=== PATIENT | female | born 1945 | race Caucasian/White ===

== ENCOUNTER 2017-02-05 16:31 | Observation (INO) | payer MEDICARE ==
[2017-02-05] VITALS (8 sets, daily range): BP systolic 116–150; BP diastolic 57–75; PULSE 60–90; RESP 16–24; TEMP 98.5; O2SAT 70–100
[~2017-02-05] VITALS: Ht 157.5 cm; Wt 54.0 kg
[~2017-02-05 16:31] MED LIST: BISO5TAB5 PO; FENT50DI T-DERMAL; LINA290C PO; MACR100C PO; NEXI40CA PO; SIMV20 PO
--- NOTE | 2017-02-05 18:56 | PD ---
HPI Chief Complaint: Chest Pain Time Seen by Provider: 18:55 Travel History International Travel<30 days: No Contact w/Intl Traveler<30days: No Traveled to known affect area: No History of Present Illness HPI 71-year-old female with history of multiple myalgias, arthralgias, asthma, pulmonary scarring, presents emergency department for evaluation of he chest pain. She was in her primary care provider's office by her made him aware of her symptoms. They contacted 911 and she was brought to the emergency department. Patient states that she has so many different pains she is uncertain if this is normal for her or not. Over the last 3 days she has been having episodes where she feels as though her asthma is flaring. She has to take a deeper breath. Over the last few days she has had a pain between her shoulders and on her left anterior chest. She has no nausea or vomiting. The lightheaded sensation. No diaphoresis. Patient has no recent illnesses, fever , chills. She has no other symptoms to report. Patient's last stress test was 3 years ago. PFSH Past Medical History Arthritis: Yes (OA) Cardiovascular Problems: Yes (OR TIMES 2) Cerebrovascular Accident: Yes (CVA) Diminished Hearing: No GERD: Yes Myocardial Infarction: Yes (2) Past Surgical History Appendectomy: Yes Cholecystectomy: Yes Eye Surgery: Yes (BILAT. EYES) Social History Alcohol Use: No Tobacco Use: No Substance Use: No Allergies-Medications (Allergen,Severity, Reaction): Coded Allergies: penicillin G (Unverified Allergy, Severe, 10/10/16) Reported Meds & Prescriptions Reported Meds & Active Scripts Active Reported Fentanyl 50 Mcg/Hr patch (Fentanyl) 50 Mcg/Hr Dis 1 Patch T-DERMAL Q3D Simvastatin 20 mg (Simvastatin) 20 Mg Tab 1 Tab PO HS Bisoprolol Fumarate 5 Mg Tab 5 Mg PO DAILY Nexium (Esomeprazole Magnesium) Esomeprazole Magnesium 40 mg Cap 40 Mg PO BID Macrobid (Nitrofurantoin Macrocrystals) 100 Mg Cap 100 Mg PO BID Linzess (Linaclotide) 290 Mcg Cap 290 Mcg PO Review of Systems Except as stated in HPI: all other systems reviewed are Neg Physical Exam Narrative GENERAL: Well-nourished female patient, lying in bed in no acute distress. SKIN: Focused skin assessment warm/dry. HEAD: Atraumatic. Normocephalic. EYES: Pupils equal and round. No scleral icterus. No injection or drainage. ENT: No nasal bleeding or discharge. Mucous membranes pink and moist. NECK: Trachea midline. No JVD. CARDIOVASCULAR: Regular rate and rhythm. RESPIRATORY: No accessory muscle use. Clear to auscultation. Breath sounds equal bilaterally. No tenderness elicited palpation over the anterior cage. No crepitus. GASTROINTESTINAL: Abdomen soft, non-tender, nondistended. Hepatic and splenic margins not palpable. MUSCULOSKELETAL: No obvious deformities. No clubbing. No cyanosis. No edema. NEUROLOGICAL: Awake and alert. No obvious cranial nerve deficits. Motor grossly within normal limits. Normal speech. PSYCHIATRIC: Appropriate mood and affect; insight and judgment normal. Data Data Last Documented VS Vital Signs Date Time Temp Pulse Resp B/P (MAP) Pulse Ox O2 Delivery O2 Flow Rate FiO2 02/05/17 20:02 16 02/05/17 19:46 66 116/62 (80) 98 Room Air 02/05/17 18:50 98.5 Orders Orders Electrocardiogram (02/05/17 18:55) Basic Metabolic Panel (Bmp) (02/05/17 18:55) B-Type Natriuretic Peptide (02/05/17 18:55) Ckmb (Isoenzyme) Profile (02/05/17 18:55) Complete Blood Count With Diff (02/05/17 18:55) Magnesium (Mg) (02/05/17 18:55) Prothrombin Time / Inr (Pt) (02/05/17 18:55) Act Partial Throm Time (Ptt) (02/05/17 18:55) Troponin I (02/05/17 18:55) Chest, Single Ap (02/05/17 18:55) Ecg Monitoring (02/05/17 18:55) Bilateral Bp Monitoring (02/05/17 18:55) Iv Access Insert/Monitor (02/05/17 18:55) Oximetry (02/05/17 18:55) Oxygen Administration (02/05/17 18:55) Sodium Chloride 0.9% Flush (Ns Flush) (02/05/17 19:00) Nitroglycerin Sl (Nitrostat Sl) (02/05/17 19:00) Sodium Chlorid 0.9% 500 Ml Inj (Ns 500 M (02/05/17 19:00) Ketorolac Inj (Toradol Inj) (02/05/17 21:00) Activity Bed Rest With Brp (02/05/17 21:06) Vital Signs (Adult) Q4H (02/05/17 21:06) Cardiac Rhythm .As Directed (02/05/17 21:06) Notify Dr: Other .PRN (02/05/17 21:06) Notify Dr. Parameters (02/05/17 21:06) Resp Oxygen Nasal Cannula (02/05/17 ) Diet Npo (02/06/17 Breakfast) Diet Heart Healthy (02/05/17 Dinner) Ckmb (Isoenzyme) Profile (02/05/17 22:15) Ckmb (Isoenzyme) Profile (02/06/17 01:15) Troponin I (02/05/17 22:15) Troponin I (02/06/17:15) Electrocardiogram (02/05/17 22:15) Electrocardiogram (02/06/17 01:15) ^ Obtain (02/05/17 21:06) Sodium Chloride 0.9% Flush (Ns Flush) (02/05/17 21:15) Sodium Chloride 0.9% Flush (Ns Flush) (02/06/17 09:00) Acetaminophen (Tylenol) (02/05/17 21:15) Acetamin-Hydrocod 325-7.5 Mg ([place] 7.5 (02/05/17 21:15) Ondansetron Inj (Zofran Inj) (02/05/17 21:15) Motor Vehicle Emissions Inspector / Telemetry ROLANDA.Q8H (02/05/17 21:06) Casey Bilateral/Knee High ROLANDA.QSHIFT (02/05/17 21:06) Admit Order (Ed Use Only) (02/05/17 21:06) Labs Laboratory Tests Test 02/05/17 19:10 White Blood Count 6.8 TH/MM3 Red Blood Count 4.11 MIL/MM3 Hemoglobin 13.1 GM/DL Hematocrit 39.0 % Mean Corpuscular Volume 94.9 FL Mean Corpuscular Hemoglobin 31.9 PG Mean Corpuscular Hemoglobin Concent 33.7 % Red Cell Distribution Width 12.8 % Platelet Count 259 TH/MM3 Mean Platelet Volume 7.7 FL Neutrophils (%) (Auto) 67.2 % Lymphocytes (%) (Auto) 25.7 % Monocytes (%) (Auto) 6.0 % Eosinophils (%) (Auto) 0.5 % Basophils (%) (Auto) 0.6 % Neutrophils # (Auto) 4.6 TH/MM3 Lymphocytes # (Auto) 1.8 TH/MM3 Monocytes # (Auto) 0.4 TH/MM3 Eosinophils # (Auto) 0.0 TH/MM3 Basophils # (Auto) 0.0 TH/MM3 CBC Comment DIFF FINAL Differential Comment Prothrombin Time 10.2 SEC Prothromb Time International Ratio 1.0 RATIO Activated Partial Thromboplast Time 35.4 SEC Blood Urea Nitrogen 17 MG/DL Creatinine 0.97 MG/DL Random Glucose 94 MG/DL Calcium Level 9.1 MG/DL Magnesium Level 2.3 MG/DL Sodium Level 139 MEQ/L Potassium Level 4.5 MEQ/L Chloride Level 105 MEQ/L Carbon Dioxide Level 26.9 MEQ/L Anion Gap 7 MEQ/L Estimat Glomerular Filtration Rate 57 ML/MIN Total Creatine Kinase 76 U/L Troponin I LESS THAN 0.02 NG/ML B-Type Natriuretic Peptide 51 PG/ML MDM Medical Decision Making Medical Screen Exam Complete: Yes Emergency Medical Condition: Yes Medical Record Reviewed: Yes Differential Diagnosis ACS versus chest wall pain versus pleuritic pain versus spasm Narrative Course 71-year-old female presents versus department for evaluation. Patient appears without distress. Vital signs are stable. Laboratory Tests Test 02/05/17 19:10 White Blood Count 6.8 TH/MM3 Red Blood Count 4.11 MIL/MM3 Hemoglobin 13.1 GM/DL Hematocrit 39.0 % Mean Corpuscular Volume 94.9 FL Mean Corpuscular Hemoglobin 31.9 PG Mean Corpuscular Hemoglobin Concent 33.7 % Red Cell Distribution Width 12.8 % Platelet Count 259 TH/MM3 Mean Platelet Volume 7.7 FL Neutrophils (%) (Auto) 67.2 % Lymphocytes (%) (Auto) 25.7 % Monocytes (%) (Auto) 6.0 % Eosinophils (%) (Auto) 0.5 % Basophils (%) (Auto) 0.6 % Neutrophils # (Auto) 4.6 TH/MM3 Lymphocytes # (Auto) 1.8 TH/MM3 Monocytes # (Auto) 0.4 TH/MM3 Eosinophils # (Auto) 0.0 TH/MM3 Basophils # (Auto) 0.0 TH/MM3 CBC Comment DIFF FINAL Differential Comment Prothrombin Time 10.2 SEC Prothromb Time International Ratio 1.0 RATIO Activated Partial Thromboplast Time 35.4 SEC Blood Urea Nitrogen 17 MG/DL Creatinine 0.97 MG/DL Random Glucose 94 MG/DL Calcium Level 9.1 MG/DL Magnesium Level 2.3 MG/DL Sodium Level 139 MEQ/L Potassium Level 4.5 MEQ/L Chloride Level 105 MEQ/L Carbon Dioxide Level 26.9 MEQ/L Anion Gap 7 MEQ/L Estimat Glomerular Filtration Rate 57 ML/MIN Total Creatine Kinase 76 U/L Troponin I LESS THAN 0.02 NG/ML B-Type Natriuretic Peptide 51 PG/ML Last Impressions Chest X-Ray 02/05/17 6167 Signed Impressions: Service Date/Time: Sunday, February 05, 2017 19:17 - CONCLUSION: 1. No active disease. Small hiatal hernia. Tomás Killian MD I discussed the patient with my attending physician. We feel it is in her best interest to be admitted observation to the chest pain center. Plan as discussed with the patient and her . They are in agreement with this as well. Diagnosis Primary Impression: Atypical chest pain Admitting Information Admitting Physician Requests: Observation Condition: Stable JeanineRadhaYuliatasia MOREAU Feb 05, 2017 18:56
[2017-02-05] MEDS ORDERED: SODIUM CHLORIDE 0.9% FLUSH 10 ML FLUSH IVF PRN (19:00)
[2017-02-05] MEDS ORDERED: SODIUM CHLORID 0.9% 500 ML INJ 500 ML IV ONE (19:00)
[2017-02-05] MEDS: NITROGLYCERIN 0.4 MG SL 25 TABS/BTL SL SCH ×3 (19:17→19:47)
--- NOTE | 2017-02-05 19:35 | RADRPT ---
EXAM DATE/TIME: 02/05/2017 19:17 [facility] COMPARISON: No previous studies available for comparison. INDICATIONS : Chest pain MEDICAL HISTORY : Cardiovascular disease. SURGICAL HISTORY : None. ENCOUNTER: Initial ACUITY: 1 day PAIN SCORE: 3/10 LOCATION: Bilateral chest FINDINGS: A single view of the chest demonstrates the lungs to be symmetrically aerated without evidence of mas s, infiltrate or effusion. The cardiomediastinal contours are unremarkable except small hiatal herni a. Osseous structures are intact. CONCLUSION: 1. No active disease. Small hiatal hernia. Tomás Killian MD on February 05, 2017 at 19:32 Board Certified Radiologist. This report was verified electronically.
[2017-02-05 20:11] LABS: AUTOMATED NEUTROPHIL # 4.6 TH/MM3 (1.8-7.7); BASOPHIL % 0.6 % (0.0-2.0); EOSINOPHIL % 0.5 % (0.0-4.0); HEMO FLAGS DIFF FINAL; LYMPH % 25.7 % (9.0-44.0); LYMPHOCYTE # 1.8 TH/MM3 (1.0-4.8); MEAN CELL VOLUME 94.9 FL (80.0-100.0); MEAN CORPUSCULAR HEMOGLOBIN 31.9 PG (27.0-34.0); MEAN CORPUSCULAR HGB CONC 33.7 % (32.0-36.0); NEUT % 67.2 % (16.0-70.0); PLATELET COUNT 259 TH/MM3 (150-450); RED BLOOD COUNT 4.11 MIL/MM3 (4.00-5.30); RED CELL DISTRIBUTION WIDTH 12.8 % (11.6-17.2); WHITE BLOOD COUNT 6.8 TH/MM3 (4.0-11.0)
[2017-02-05 20:18] LABS: APTT (PATIENT) 35.4 SEC (24.3-30.1); PROTHROMBIN TIME - PATIENT 10.2 SEC (9.8-11.6)
[2017-02-05 20:24] LABS: ANION GAP 7 MEQ/L (5-15); BICARBONATE 26.9 MEQ/L (21.0-32.0); BLOOD UREA NITROGEN 17 MG/DL (7-18); CHLORIDE 105 MEQ/L (98-107); GLOMERULAR FILTRATION RATE 57 ML/MIN (>89); MAGNESIUM 2.3 MG/DL (1.5-2.5); POTASSIUM 4.5 MEQ/L (3.5-5.1); SODIUM (NA) 139 MEQ/L (136-145)
[2017-02-05 20:35] LABS: CREATINE KINASE 76 U/L (26-192)
[2017-02-05] MEDS ORDERED: KETOROLAC TROMETHAMINE 30 MG/ML (IVP) VIAL IV PUSH ONE (21:00)
[2017-02-05] MEDS ORDERED: ONDANSETRON HCL 4 MG/2 ML VIAL IV PUSH PRN (21:15)
[2017-02-05] MEDS ORDERED: ACETAMINOPHEN/HYDROcodone 325 MG/7.5 MG TAB PO PRN (21:15)
[2017-02-05] MEDS ORDERED: SODIUM CHLORIDE 0.9% FLUSH 10 ML FLUSH IV FLUSH PRN (21:15)
[2017-02-05] MEDS ORDERED: ACETAMINOPHEN 500 MG CPLT PO PRN (21:15)
--- NOTE | 2017-02-05 21:16 | PD ---
Physical Exam Narrative General: The patient is a well-developed well-nourished female in no acute distress. She denies having any chest pain currently. Head and Neck exam: Head is normocephalic atraumatic. Eyes: Pupils are equal round and reactive to light. Nose: Midline septum with pink mucous membranes Mouth: Dentition unremarkable. Moist mucus membranes. Posterior oropharynx is not erythematous. No tonsillar hypertrophy. Uvula midline. Airway patent. Neck: No palpable lymphadenopathy. No nuchal rigidity. No thyromegaly. Cardiovascular: Regular rate and rhythm without murmurs, gallops, or rubs. Lungs: Soft expiratory wheezes audible anteriorly, no respiratory distress. No crackles, no rhonchi. No accessory muscle use. No tripoding or paroxysmal abdominal breathing. Abdomen: Soft, without tenderness to palpation in all 4 quadrants of the abdomen. No guarding, rebound, or rigidity. Normal bowel sounds are audible. No tenderness on palpation of McBurney's point. Extremities: No clubbing, cyanosis, or edema. 2+ pulses in all 4 extremities. No Tenderness on palpation. Neurologic Exam: Grossly nonfocal. Skin Exam: No rash noted. Intact skin that is warm and dry. Data Data Last Documented VS Vital Signs Date Time Temp Pulse Resp B/P (MAP) Pulse Ox O2 Delivery O2 Flow Rate FiO2 02/05/17 20:02 16 02/05/17 19:46 66 116/62 (80) 98 Room Air 02/05/17 18:50 98.5 Orders Orders Electrocardiogram (02/05/17 18:55) Basic Metabolic Panel (Bmp) (02/05/17 18:55) B-Type Natriuretic Peptide (02/05/17 18:55) Ckmb (Isoenzyme) Profile (02/05/17 18:55) Complete Blood Count With Diff (02/05/17 18:55) Magnesium (Mg) (02/05/17 18:55) Prothrombin Time / Inr (Pt) (02/05/17 18:55) Act Partial Throm Time (Ptt) (02/05/17 18:55) Troponin I (02/05/17 18:55) Chest, Single Ap (02/05/17 18:55) Ecg Monitoring (02/05/17 18:55) Bilateral Bp Monitoring (02/05/17 18:55) Iv Access Insert/Monitor (02/05/17 18:55) Oximetry (02/05/17 18:55) Oxygen Administration (02/05/17 18:55) Sodium Chloride 0.9% Flush (Ns Flush) (02/05/17 19:00) Nitroglycerin Sl (Nitrostat Sl) (02/05/17 19:00) Sodium Chlorid 0.9% 500 Ml Inj (Ns 500 M (02/05/17 19:00) Ketorolac Inj (Toradol Inj) (02/05/17 21:00) Activity Bed Rest With Brp (02/05/17 21:06) Vital Signs (Adult) Q4H (02/05/17 21:06) Cardiac Rhythm .As Directed (02/05/17 21:06) Notify Dr: Other .PRN (02/05/17 21:06) Notify DrChandni Parameters (02/05/17 21:06) Resp Oxygen Nasal Cannula (02/05/17 ) Diet Npo (02/06/17 Breakfast) Diet Heart Healthy (02/05/17 Dinner) Ckmb (Isoenzyme) Profile (02/05/17 22:15) Ckmb (Isoenzyme) Profile (02/06/17 01:15) Troponin I (02/05/17 22:15) Troponin I (02/06/17 01:15) Electrocardiogram (02/05/17 22:15) Electrocardiogram (02/06/17 01:15) ^ Obtain (02/05/17 21:06) Sodium Chloride 0.9% Flush (Ns Flush) (02/05/17 21:15) Sodium Chloride 0.9% Flush (Ns Flush) (02/06/17 09:00) Acetaminophen (Tylenol) (02/05/17 21:15) Acetamin-Hydrocod 325-7.5 Mg ([place] 7.5 (02/05/17 21:15) Ondansetron Inj (Zofran Inj) (02/05/17 21:15) Welfare Manager / Telemetry ROLANDA.Q8H (02/05/17 21:06) Casey Bilateral/Knee High ROLANDA.QSHIFT (02/05/17 21:06) Admit Order (Ed Use Only) (02/05/17 21:06) Labs Laboratory Tests Test 02/05/17 19:10 White Blood Count 6.8 TH/MM3 Red Blood Count 4.11 MIL/MM3 Hemoglobin 13.1 GM/DL Hematocrit 39.0 % Mean Corpuscular Volume 94.9 FL Mean Corpuscular Hemoglobin 31.9 PG Mean Corpuscular Hemoglobin Concent 33.7 % Red Cell Distribution Width 12.8 % Platelet Count 259 TH/MM3 Mean Platelet Volume 7.7 FL Neutrophils (%) (Auto) 67.2 % Lymphocytes (%) (Auto) 25.7 % Monocytes (%) (Auto) 6.0 % Eosinophils (%) (Auto) 0.5 % Basophils (%) (Auto) 0.6 % Neutrophils # (Auto) 4.6 TH/MM3 Lymphocytes # (Auto) 1.8 TH/MM3 Monocytes # (Auto) 0.4 TH/MM3 Eosinophils # (Auto) 0.0 TH/MM3 Basophils # (Auto) 0.0 TH/MM3 CBC Comment DIFF FINAL Differential Comment Prothrombin Time 10.2 SEC Prothromb Time International Ratio 1.0 RATIO Activated Partial Thromboplast Time 35.4 SEC Blood Urea Nitrogen 17 MG/DL Creatinine 0.97 MG/DL Random Glucose 94 MG/DL Calcium Level 9.1 MG/DL Magnesium Level 2.3 MG/DL Sodium Level 139 MEQ/L Potassium Level 4.5 MEQ/L Chloride Level 105 MEQ/L Carbon Dioxide Level 26.9 MEQ/L Anion Gap 7 MEQ/L Estimat Glomerular Filtration Rate 57 ML/MIN Total Creatine Kinase 76 U/L Troponin I LESS THAN 0.02 NG/ML B-Type Natriuretic Peptide 51 PG/ML [facility] Medical Record Reviewed: Yes Supervised Visit with TRINIDAD: Yes Narrative Course I, Dr. Torres, have reviewed the advance practice practitioner's documentation and am in agreement, met with the patient face to face, made the diagnosis, and the medical decision making was done by me. The patient was initially evaluated by Yulia. Please see their complete history and physical. *My assessment and Findings: The patient presents with a history of recurrent chest pain and shortness of breath. The patient went to see her primary care physician earlier today and was referred to the emergency department for evaluation and treatment. During the course of the patients emergency department visit, the patients history, examination, and differential diagnosis were reviewed with the patient. The patient was placed on a monitoring engineer with oximetry and frequent blood pressure monitoring. The patient had IV access obtained and blood work sent for analysis. The patient was initially provided normal saline a 500 mL bolus 1, nitroglycerin sublingual every 5 minutes 3 when necessary chest pain. The patients laboratory studies were reviewed and remarkable for a CBC that is within normal limits, basic metabolic profile is unremarkable, CPK 76, troponin I less than 0.02, BNP 51, PT 10.2, PTT 35.4. Radiology studies were reviewed and remarkable for a chest x-ray that showed no acute abnormality, small hiatal hernia. The patients results were discussed with the patient, including the plan of care. I explained that further testing and/ or monitoring is indicated based on the patients history, examination, and/ or laboratory findings. Therefore, I recommended admission for additional evaluation. The patient expressed understanding and was agreeable with this plan. The patient was admitted to the hospital in stable condition and sent to a bed under the care of chest pain center. Diagnosis Primary Impression: Atypical chest pain Admitting Information Admitting Physician Requests: Observation Elizabeth Torres MD Feb 05, 2017 21:16
[2017-02-05] MEDS ORDERED: ALBU0.08 NEB (21:55)
[2017-02-05] MEDS ORDERED: LINA290C PO (21:55)
[2017-02-05] MEDS ORDERED: SIMV20TA PO (21:55)
[2017-02-05] MEDS ORDERED: ADVA250A INH (21:55)
[2017-02-05] MEDS ORDERED: FENT100D T-DERMAL (21:55)
[2017-02-05] MEDS ORDERED: VENTAER INH (21:55)
[2017-02-05] MEDS ORDERED: ESOM1CAP16 PO (21:55)
[2017-02-05] MEDS ORDERED: BISO5TAB5 PO (21:55)
[2017-02-05] MEDS ORDERED: HYDR-3583 (21:55)
[2017-02-05] MEDS ORDERED: NITR0.4S SL (21:55)
[2017-02-05] MEDS ORDERED: PROM25SU (21:55)
[2017-02-05 23:11] LABS: CREATINE KINASE 58 U/L (26-192)
[2017-02-06] VITALS (8 sets, daily range): BP systolic 136–144; BP diastolic 62–72; PULSE 56–85; RESP 18–20; TEMP 97.9–98.5; O2SAT 97–99
[2017-02-06 01:57] LABS: CREATINE KINASE 51 U/L (26-192)
[2017-02-06] MEDS ORDERED: SODIUM CHLORIDE 0.9% FLUSH 10 ML FLUSH IV FLUSH SCH (09:00)
[2017-02-06] MEDS ORDERED: RESP: ALBUTEROL 2.5 MG/IPRATROPIUM 0.5 MG NEB (SCH) INH ONE (09:15)
[2017-02-06] MEDS ORDERED: RESP: ALBUTEROL 2.5 MG/IPRATROPIUM 0.5 MG NEB (PRN) INH (09:15)
--- NOTE | 2017-02-06 09:16 | HHI.HP ---
HPI Primary Care Physician No Primary Care Physician Chief Complaint Chest pain History of Present Illness This is a 71-year-old female that presents to ED to be evaluated for chest pain. States that she has chest pains quite regularly. On average 2-3 discomforts a week for the last 3 years. States that she had a cardiac catheterization with her test rider in [place] 3 years ago and that was normal. States there were no blockages. She had a heart catheterization a few years prior to that also showing no blockages. She found nothing to bring on the discomforts. Uses glasses a few moments but yesterday seemed to last a couple hours which concerned her. She has asthma and thought it may be related to her asthma states the nebulizer only helped a little bit. She has not been short of breath. No nausea or diaphoresis. Currently feeling okay. Review of Systems General: Patient denies fevers, chills recent, and recent travel HEENT: Patient denies headache, sore throat, difficulty swallowing. Cardiovascular: Has the chest discomfort as mentioned above. Denies sensation of heart beating rapidly or irregularly. No syncope. Respiratory: Denies shortness of breath or inspirational chest discomfort. She has been wheezing. Denies coughing or hemoptysis. GI: Patient denies nausea, vomiting, diarrhea, abdominal pain, bloody stools. Musculoskeletal: Patient has chronic pain. States she's been several bad accidents and is chronic pain throughout her spine and chronically has myalgias and arthralgias. Denies calf pain or swelling. Neurovascular: Patient denies numbness, tingling, weakness in extremities. Denies headache. Endocrine: Denies polyuria and polydipsia. Hematologic: Denies easy bruising. Skin: Denies rash or itching. Past Family Social History Allergies: Coded Allergies: penicillin G (Unverified Allergy, Severe, 10/10/16) Past Medical History Asthma, GERD, hypertension, hyperlipidemia, chronic pain. Denies diabetes and CAD. Past Surgical History Appendectomy, cholecystectomy, and bilateral eye surgery. Reported Medications Reported Meds & Active Scripts Active Reported Nitrostat SL (Nitroglycerin) 0.4 Mg Subl 0.4 Mg SL DIRECTED PRN 1 tablet under the tongue as needed for chest pain. Repeat every 5 minutes for a total of 3 DOSES or call 911 if NO relief. Bisoprolol (Bisoprolol Fumarate) 5 Mg Tab 5 Mg PO DAILY Fentanyl Patch 72 HR (Fentanyl) 100 Mcg/Hr Patch 100 Mcg T-DERMAL Q72H Remove old patch when new one placed. Esomeprazole DR 40 Mg Capdr 40 Mg PO DAILY Linzess (Linaclotide) 290 Mcg Cap 290 Mcg PO DAILY Promethegan Supp (Promethazine HCl) 25 Mg Supp Hydrocodone-Acetamin 10-325 mg (Hydrocodone/Acetaminophen) 10 Mg-325 Mg Tablet Simvastatin 20 Mg Tab 20 Mg PO DAILY Albuterol Neb (Albuterol Sulfate) 2.5 Mg/3 Ml Neb 2.5 Mg NEB Q4HR NEB While awake Ventolin Hfa 18 GM Inh (Albuterol Sulfate) 90 Mcg/Act Aer 2 Puff INH Q4-6H PRN Advair Diskus Inh (Fluticasone-Salmeterol Inh) 250-50 Mcg/Blist Aer 1 Puff INH BID Rinse mouth after use. Active Ordered Medications Current Medications Medications (Trade) Dose Ordered Sig/Janessa Route Start Time Stop Time Status Last Admin (NS Flush) 2 ml UNSCH PRN IVF 02/05/17 19:00 (NS Flush) 2 ml UNSCH PRN IV FLUSH 02/05/17 21:15 (NS Flush) 2 ml BID IV FLUSH 02/06/17 09:00 02/06/17 08:40 (Tylenol) 500 mg Q4H PRN PO 02/05/17 21:15 02/06/17 08:40 ([place] 7.5-325 Mg) 1 tab Q4H PRN PO 02/05/17 21:15 (Zofran Inj) 4 mg Q6H PRN IV PUSH 02/05/17 21:15 Non-Formulary Medication 5 mg DAILY PO 02/06/17 09:00 UNV Non-Formulary Medication 40 mg DAILY PO 02/06/17 09:00 UNV Non-Formulary Medication 20 mg DAILY PO 02/06/17 09:00 UNV (Duoneb Neb) 1 ampule Q4HR NEB PRN INH 02/06/17 09:15 UNV (Duoneb Neb) 1 ampule STAT ONCE INH 02/06/17 09:15 02/06/17 09:16 UNV Family History There is family history of CAD. Social History Nonsmoker. Denies alcohol or illicit drugs. She is . Physical Exam Vital Signs Vital Signs Date Time Temp Pulse Resp B/P (MAP) Pulse Ox O2 Delivery O2 Flow Rate FiO2 02/06/17 08:04 98.5 56 20 138/62 (87) 97 02/06/17 06:53 85 02/06/17 04:23 63 02/06/17 03:22 97.9 72 18 144/72 (96) 99 02/06/17 00:01 59 02/05/17 22:43 98.5 60 18 130/62 (84) 99 02/05/17 22:26 02/05/17 21:14 64 16 130/60 (83) 100 Room Air 02/05/17 20:02 16 02/05/17 19:46 66 16 116/62 (80) 98 Room Air 02/05/17 19:30 68 16 120/57 (78) 97 Room Air 02/05/17 19:11 74 16 150/75 (100) 100 Room Air 02/05/17 19:09 100 16 100 Room Air 02/05/17 19:07 98 Room Air 02/05/17 18:58 98 Room Air 02/05/17 18:58 69 24 98 02/05/17 18:50 98.5 90 24 146/67 (93) 99 Physical Exam GENERAL: This is a well-nourished, well-developed patient, in no apparent distress. Patient speaks in clear complete sentences. Patient is pleasant. HEENT: Head is atraumatic and normocephalic. Neck is supple without lymphadenopathy and trachea is midline. No JVD or carotid bruits. CARDIOVASCULAR: Regular rate and rhythm without murmurs, gallops, or rubs. RESPIRATORY: Diffuse wheezing. Breath sounds equal bilaterally. No rales or rhonchi. Chest wall is nontender. No use of accessory muscles. GASTROINTESTINAL: Abdomen is nontender, nondistended. Abdomen soft. No obvious pulsatile mass or bruit. No CVA tenderness. Strong femoral pulses bilaterally. Normal bowel sounds in all quadrants. MUSCULOSKELETAL: Patient is moving upper and lower extremities freely. No calf tenderness or edema, no Homans sign. Strong pulses in upper and lower extremities. NEUROLOGICAL: Patient is alert and oriented. Cranial nerves 2-12 are grossly intact. No focal deficits and speech is clear. SKIN: No rash and turgor is normal. Laboratory Laboratory Tests Test 02/05/17 19:10 02/05/17 22:12 02/06/17 01:15 White Blood Count 6.8 Red Blood Count 4.11 Hemoglobin 13.1 Hematocrit 39.0 Mean Corpuscular Volume 94.9 Mean Corpuscular Hemoglobin 31.9 Mean Corpuscular Hemoglobin Concent 33.7 Red Cell Distribution Width 12.8 Platelet Count 259 Mean Platelet Volume 7.7 Neutrophils (%) (Auto) 67.2 Lymphocytes (%) (Auto) 25.7 Monocytes (%) (Auto) 6.0 Eosinophils (%) (Auto) 0.5 Basophils (%) (Auto) 0.6 Neutrophils # (Auto) 4.6 Lymphocytes # (Auto) 1.8 Monocytes # (Auto) 0.4 Eosinophils # (Auto) 0.0 Basophils # (Auto) 0.0 CBC Comment DIFF FINAL Differential Comment Prothrombin Time 10.2 Prothromb Time International Ratio 1.0 Activated Partial Thromboplast Time 35.4 Blood Urea Nitrogen 17 Creatinine 0.97 Random Glucose 94 Calcium Level 9.1 Magnesium Level 2.3 Sodium Level 139 Potassium Level 4.5 Chloride Level 105 Carbon Dioxide Level 26.9 Anion Gap 7 Estimat Glomerular Filtration Rate 57 Total Creatine Kinase 76 58 51 Troponin I LESS THAN 0.02 LESS THAN 0.02 LESS THAN 0.02 B-Type Natriuretic Peptide 51 Result Diagram: 02/05/17190902/05/171909 Imaging Last 48 hours Impressions Chest X-Ray 02/05/171854 Signed Impressions: Service Date/Time: Sunday, February 05, 2017 19:17 - CONCLUSION: 1. No active disease. Small hiatal hernia. Tomás Killian MD Course EKGs have sinus rhythm without significant ST segment depressions or elevations. Caprini VTE Risk Assessment Caprini VTE Risk Assessment: Mod/High Risk (score >= 2) Caprini Risk Assessment Model Point Value = 1 Point Value = 2 Point Value = 3 Point Value = 5 Age 41-60 Minor surgery BMI > 25 kg/m2 Swollen legs Varicose veins or History of unexplained or recurrent spontaneous Oral contraceptives or hormone replacement Sepsis (< 1 month) Serious lung disease, including pneumonia (< 1 month) Abnormal pulmonary function Acute myocardial infarction Congestive heart failure (< 1 month) History of inflammatory bowel disease Medical patient at bed rest Age 61-74 Arthroscopic surgery Major open surgery (> 45 min) Laparoscopic surgery (> 45 min) Malignancy Confined to bed (> 72 hours) Immobilizing plaster cast Central venous access Age >= 75 History of VTE Family history of VTE Factor V Leiden Prothrombin [id number] Lupus anticoagulant Anticardiolipin antibodies Elevated serum homocysteine Heparin-induced thrombocytopenia Other congenital or acquired thrombophilia Stroke (< 1 month) Elective arthroplasty Hip, pelvis, or leg fracture Acute spinal cord injury (< 1 month) Prophylaxis Regimen Total Risk Factor Score Risk Level Prophylaxis Regimen 0-1 Low Early ambulation 2 Moderate Order ONE of the following: *Sequential Compression Device (SCD) *Heparin 5000 units SQ BID 3-4 Higher Order ONE of the following medications: *Heparin 5000 units SQ TID *Enoxaparin/Lovenox 40 mg SQ daily (WT < 150 kg, CrCl > 30 mL/min) *Enoxaparin/Lovenox 30 mg SQ daily (WT < 150 kg, CrCl > 10-29 mL/min) *Enoxaparin/Lovenox 30 mg SQ BID (WT < 150 kg, CrCl > 30 mL/min) AND/OR *Sequential Compression Device (SCD) 5 or more Highest Order ONE of the following medications: *Heparin 5000 units SQ TID (Preferred with Epidurals) *Enoxaparin/Lovenox 40 mg SQ daily (WT < 150 kg, CrCl > 30 mL/min) *Enoxaparin/Lovenox 30 mg SQ daily (WT < 150 kg, CrCl > 10-29 mL/min) *Enoxaparin/Lovenox 30 mg SQ BID (WT < 150 kg, CrCl > 30 mL/min) AND *Sequential Compression Device (SCD) Assessment and Plan Assessment and Plan * Chest pain: Patient has had serial cardiac enzymes and EKGs for ruling out purposes. She has been seen by Dr. Brown cardiology in the chest pain center. Patient reports having 2 normal heart catheterizations, most recently being about 3 years ago and [facility]. We will get these records. If this is confirmed, patient be discharged home with instructions to follow-up with PCP and cardiology. * Asthma: Patient is actively wheezing. We'll give DuoNeb's. Patient was her medication at discharge. * Hypertension: Continue current medication. * Hyperlipidemia: Continue current medication. * GERD: Continue current medication. * Chronic pain: Continue current medication. Patient is stable at this time. She is agreeable to this plan. Nato Mclaughlin Feb 06, 2017 09:16
[2017-02-06] MEDS ORDERED: PANTOPRAZOLE SOD 40 MG DELAYED RELEASE TAB PO SCH (10:00)
[2017-02-06] MEDS ORDERED: PRAVASTATIN SOD 40 MG TAB PO SCH (10:00)
[2017-02-06] MEDS ORDERED: BISOPROLOL 5 MG PO SCH (10:00)
--- NOTE | 2017-02-06 15:15 | HHI.DCPOC ---
Discharge Care Plan Diagnosis: (1) Chest pain (2) Hypertension (3) Hyperlipidemia (4) Asthma Goals to Promote Your Health * To prevent worsening of your condition and complications * To maintain your health at the optimal level Directions to Meet Your Goals Take your medications as prescribed Follow your dietary instruction Follow activity as directed Keep your appointments as scheduled Take your immunizations and boosters as scheduled If your symptoms worsen call your PCP, if no PCP go to Urgent Care Center or Emergency Room Smoking is Dangerous to Your Health. Avoid second hand smoke Call the 24-hour hour crisis hotline for domestic abuse at Nato Mclaughlin Feb 06, 2017 15:15
--- NOTE | 2017-02-06 17:25 | EKG ---
Date Performed: 02/05/2017 Time Performed: 19:12:32 PTAGE: 71 years EKG: Sinus rhythm NORMAL ECG NO PREVIOUS TRACING DOCTOR: Angelica Brown Interpretating Date/Time 02/06/2017 17:24:42
--- NOTE | 2017-02-06 17:26 | EKG ---
Date Performed: 02/05/2017 Time Performed: 22:06:49 PTAGE: 71 years EKG: Sinus rhythm NORMAL ECG Since PREVIOUS TRACING , no significant change noted PREVIOUS TRACIN02/05/2017 19.12 DOCTOR: Angelica Brown Interpretating Date/Time 02/06/2017 17:25:23
--- NOTE | 2017-02-06 17:29 | EKG ---
Date Performed: 02/06/2017 Time Performed: 01:46:19 PTAGE: 71 years EKG: Sinus rhythm NORMAL ECG Since PREVIOUS TRACING , no significant change noted PREVIOUS TRACIN02/05/2017 22.06 DOCTOR: Angelica Brown Interpretating Date/Time 02/06/2017 17:27:15
== END 2017-02-06 18:07 | disposition home or self-care (01) ==
LOC: NEPE 16:31 → NEDA 21:10 → NEPFCDU 22:15
PROVIDERS: ADMIT Internal Medicine Cardiovascular Disease; ATTEND Internal Medicine Cardiovascular Disease
DX: R07.89 Other chest pain (principal); R06.02 Shortness of breath; R42 Dizziness and giddiness; J45.909 Unspecified asthma, uncomplicated; I10 Essential (primary) hypertension; E78.5 Hyperlipidemia, unspecified; I25.2 Old myocardial infarction; K21.9 Gastro-esophageal reflux disease without esophagitis; K44.9 Diaphragmatic hernia without obstruction or gangrene; G89.29 Other chronic pain; M79.1 Myalgia; M25.50 Pain in unspecified joint; M19.90 Unspecified osteoarthritis, unspecified site; Z79.899 Other long term (current) drug therapy; Z86.73 Personal history of transient ischemic attack (TIA), and cerebral infarction without residual deficits
CPT/HCPCS: 71010; 80048; 82550; 83735; 83880; 84484; 85025; 85610; 85730; 93005; 94640; 94664; 96361; 96374; 96376; 99285; G0378; J1885; J7040